=== PATIENT | female | born 1965 | race Caucasian/White ===

== ENCOUNTER 2021-02-21 22:00 | Emergency (ER) | payer SELFPAY ==
[~2021-02-21] VITALS: Ht 157.5 cm; Wt 99.8 kg
[2021-02-21 22:00] VITALS: BP 153/84
--- NOTE | 2021-02-21 22:00 | NUR ---
PATIENT BIBA FROM HOME FOR C/O ANXIETY X 1 HOUR PRIOR TO ARRIVAL. PER PATIENT SHE STARTING TO FEEL SOB AND MOUTH NUMBNESS X 1 HOUR AGO. PATIENT STATES SHE NO LONGER FEELS SOB OR MOUTH NUMBNESS AT THIS TIME. PATIENT ALSO STATES SHE IS NO LONGER FEELING ANXIOUS.
--- NOTE | 2021-02-21 22:01 | NUR ---
NANCY DIAZ TAKEN TO BED #9 Addendum: 02/21/21 at 2218 by MEDGJ NANCY ALS
--- NOTE | 2021-02-21 23:45 | NUR ---
PATIENT STATES ,"I FEEL A LOT BETTER. I'M NOT FEELING ANXIOUS ANYMORE." PATIENT AMBULTED TO RESTROOM WITH STEADY GAIT.
[2021-02-22 00:15] VITALS: BP 138/72
--- NOTE | 2021-02-22 00:15 | NUR ---
Patient discharged with v/s stable. Written and verbal after care instructions given and explained. Patient verbalized understanding. Ambulatory with steady gait. All questions addressed prior to discharge. Advised to follow up with PMD.
== END 2021-02-22 00:15 | disposition home or self-care (01) ==
LOC: MED 22:00
DX: F41.0 Panic disorder [episodic paroxysmal anxiety] (principal); R06.02 Shortness of breath; I10 Essential (primary) hypertension; F41.9 Anxiety disorder, unspecified; F32.9 Major depressive disorder, single episode, unspecified
CPT/HCPCS: 71045; 93005; 99283